=== PATIENT | female | born 1990 | race Caucasian/White ===

== ENCOUNTER → 2017-01-24 | Outpatient (CLI) | payer OTHER ==
[~2017-01-24] MED LIST: LEVO125T
== END | disposition home or self-care (01) ==
LOC: CFH 08:51 → MERGE 08:51
PROVIDERS: ATTEND Obstetrics & Gynecology
DX: N93.9 Abnormal uterine and vaginal bleeding, unspecified (principal)
CPT/HCPCS: 58340; 76831

== ENCOUNTER 2019-07-29 14:10 | Emergency (ER) | payer OTHER ==
[~2019-07-29] VITALS: Ht 167.6 cm; Wt 67.3 kg
--- NOTE | 2019-07-29 16:10 | NUR ---
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
--- NOTE | 2019-07-29 17:04 | NUR ---
PT STATES MONDAY SHE HAD AN EPISODE OF RIGHT SIDED NUMBNESS AND CRAMPING PAIN AND UNABLE TO TO TALK. AFTER IT RESOLVED PT STATES THAT SHE HAD WHAT SHE ATTRIBUTES ONE OF HER REGULAR ANXIETY ATTACKS BECAUSE THE SYMPTOMS SCARED HER. NO COMPLAINTS AT THIS TIME. TO CT
[2019-07-29 17:37] LABS: BASOPHILS # (AUTO) 0.04 x10^3/uL (0-0.1); BASOPHILS % (AUTO) 0 % (0-1); EOSINOPHILS # (AUTO) 0.05 x10^3/uL (0-0.4); EOSINOPHILS % (AUTO) 1 % (1-7); LYMPHOCYTES # (AUTO) 2.38 x10^3/uL (1-3.4); LYMPHOCYTES % (AUTO) 23 % (22-44); MD NO; MEAN CORPUSCULAR HEMOGLOBIN 31.9 pg (27.0-34.8); MEAN CORPUSCULAR HGB CONC 33.1 g/dL (32.4-35.8); MEAN CORPUSCULAR VOLUME 96.6 fL (80-100); MEAN PLATELET VOLUME 7.2 fL (7.4-10.4); MONOCYTES # (AUTO) 0.52 x10^3/uL (0.2-0.8); MONOCYTES % (AUTO) 5 % (2-9); NEUTROPHILS # (AUTO) 7.35 x10^3/uL (1.8-6.8); NEUTROPHILS % (AUTO) 71 % (42-75); PLATELET COUNT 259 x10^3/uL (130-400); RED BLOOD COUNT 4.72 x10^6/uL (3.82-5.3); RED CELL DISTRIBUTION WIDTH 12.2 % (9.6-15.2)
[2019-07-29 17:44] LABS: ALANINE AMINOTRANSFERASE 73 U/L (12-78); ALBUMIN 4.3 g/dL (3.4-5.0); ANION GAP 5 mmol/L (5-15); CHLORIDE 110 mmol/L (98-107)
[2019-07-29 17:47] LABS: ALKALINE PHOSPHATASE 77 U/L (45-117); BILIRUBIN,TOTAL 0.5 mg/dL (0.2-1.0); CREATININE 0.69 mg/dL (0.55-1.02); TOTAL PROTEIN 7.8 g/dL (6.4-8.2)
[2019-07-29 17:56] VITALS: BP 130/87
--- NOTE | 2019-07-29 17:57 | NUR ---
AWAITING LABS, NO DISTRESS.
== END 2019-07-29 19:11 | disposition home or self-care (01) ==
LOC: ED 18:25
DX: M62.838 Other muscle spasm (principal); G43.909 Migraine, unspecified, not intractable, without status migrainosus; R07.9 Chest pain, unspecified
CPT/HCPCS: 36415; 70450; 80053; 83605; 85025; 93005; 99284